=== PATIENT | male | born 1945 | race Caucasian/White ===

== ENCOUNTER 2021-06-06 09:11 | Outpatient (CLI) | payer MEDICARE ==
[2021-06-06 23:17] LABS: SARS-CoV-2 PCR by NAA Not Detected (NotDetected)
== END 2021-06-06 09:12 | disposition home or self-care (01) ==
LOC: LABBT 09:11
PROVIDERS: ATTEND Internal Medicine Cardiovascular Disease
DX: Z01.812 Encounter for preprocedural laboratory examination (principal); I48.0 Paroxysmal atrial fibrillation; Z20.822 Contact with and (suspected) exposure to COVID-19
CPT/HCPCS: U0003; U0005

== ENCOUNTER 2021-06-10 05:53 | Day surgery (SDC) | payer MEDICARE ==
[2021-06-06 11:57] VITALS: BMI 28.8
[2021-06-10] MEDS ORDERED: Lidocaine 1% w/Epinephrine 1:100K 20 ML VIAL ONE (06:36)
== END 2021-06-10 07:35 | disposition home or self-care (01) ==
LOC: CCL 05:53
PROVIDERS: ATTEND Internal Medicine Cardiovascular Disease
PROC: 0JPT32Z Removal of Monitoring Device from Trunk Subcutaneous Tissue and Fascia, Percutaneous Approach (ICD-10-PCS; principal; 2021-06-10)
DX: I48.0 Paroxysmal atrial fibrillation (principal); I25.10 Atherosclerotic heart disease of native coronary artery without angina pectoris; I10 Essential (primary) hypertension; E78.5 Hyperlipidemia, unspecified; K21.9 Gastro-esophageal reflux disease without esophagitis; Z87.891 Personal history of nicotine dependence; Z79.82 Long term (current) use of aspirin; Z79.899 Other long term (current) drug therapy; Z95.1 Presence of aortocoronary bypass graft

== ENCOUNTER 2022-04-28 05:52 | Day surgery (SDC) | payer MEDICARE ==
[2022-04-27 10:55] VITALS: BMI 28.8
[2022-04-28 07:05] LABS: #Eosinphils 0.2 thou/uL (0.0-0.7); #Lymphocytes 1.3 thou/uL (1.20-3.40); #Monocytes 1.3 thou/uL (0.11-0.59); #Neutrophils 6.6 thou/uL (1.40-6.50); %Basophils 0.5 % (0.0-1.0); %Eosinophils 2.1 % (0.0-10.0); %Monocytes 13.5 % (0.0-10.0); %Neutrophils 69.9 % (42.0-75.0); Hemoglobin 14.6 g/dL (14.0-18.0); Mean Corpuscular HGB CONC 32.4 g/dL (32.0-36.0); Mean Corpuscular Hemoglobin 29.7 pg (27.0-31.0); Mean Corpuscular Volume 91.8 fL (78.0-98.0); Mean Platelet Volume 7.6 fL (7.4-10.4); Platelet Count 268 thou/uL (130-400); RBC Distribution Width 12.7 % (11.5-14.5); White Blood Cell (WBC) Count 9.5 thou/uL (4.8-10.8)
[2022-04-28 07:18] LABS: Anion Gap 14 mmol/L (10-20); BUN (Urea Nitrogen) 18 mg/dL (8.4-25.7); Calc. Creatinine Clearance 77 mL/min (70-130); Calcium 9.8 mg/dL (7.8-10.44); Carbon Dioxide 26 mmol/L (23-31); Chloride 104 mmol/L (98-107); Estimated GFR 81; Glucose 101 mg/dL (83-110); Potassium 3.8 mmol/L (3.5-5.1); Sodium 140 mmol/L (136-145)
[2022-04-28 07:19] LABS: INR-International Normal Ratio 1.3; PTT 34.1 sec (22.9-36.1); Prothrombin Time 16.6 sec (12.0-14.7)
== END 2022-04-28 07:07 | disposition home or self-care (01) ==
LOC: SDC 05:52
PROVIDERS: ATTEND Internal Medicine Cardiovascular Disease
DX: I48.0 Paroxysmal atrial fibrillation (principal); I25.10 Atherosclerotic heart disease of native coronary artery without angina pectoris; I10 Essential (primary) hypertension; E78.5 Hyperlipidemia, unspecified; K21.9 Gastro-esophageal reflux disease without esophagitis; Z53.8 Procedure and treatment not carried out for other reasons; Z79.01 Long term (current) use of anticoagulants; Z79.82 Long term (current) use of aspirin; Z79.899 Other long term (current) drug therapy; Z95.1 Presence of aortocoronary bypass graft
CPT/HCPCS: 36415; 80048; 85025; 85610; 85730

== ENCOUNTER 2022-05-05 06:01 | Day surgery (SDC) | payer MEDICARE ==
[2022-05-04 14:55] VITALS: BMI 28.8
[2022-05-05] MEDS ORDERED: PROPOFOL 200 MG/20 ML VIAL ONE (07:32)
== END 2022-05-05 08:41 | disposition home or self-care (01) ==
LOC: SDC 06:01
PROVIDERS: ATTEND Internal Medicine Cardiovascular Disease
PROC: 5A2204Z Restoration of Cardiac Rhythm, Single (ICD-10-PCS; principal; 2022-05-05)
DX: I48.19 Other persistent atrial fibrillation (principal); I25.10 Atherosclerotic heart disease of native coronary artery without angina pectoris; I10 Essential (primary) hypertension; E78.5 Hyperlipidemia, unspecified; K21.9 Gastro-esophageal reflux disease without esophagitis; Z87.891 Personal history of nicotine dependence; Z79.01 Long term (current) use of anticoagulants; Z79.82 Long term (current) use of aspirin; Z79.899 Other long term (current) drug therapy; Z95.1 Presence of aortocoronary bypass graft
CPT/HCPCS: 92960; 93005; 93010; J2704

== ENCOUNTER 2022-09-10 11:58 | Outpatient (CLI) | payer MEDICARE | END 2022-09-10 11:59 | disposition home or self-care (01) | LOC: TBSIIMAG 11:58 | PROVIDERS: ATTEND Anesthesiology Pain Medicine | DX: M47.26 Other spondylosis with radiculopathy, lumbar region (principal); M48.061 Spinal stenosis, lumbar region without neurogenic claudication; M47.27 Other spondylosis with radiculopathy, lumbosacral region; M48.07 Spinal stenosis, lumbosacral region | CPT/HCPCS: 72148 ==

== ENCOUNTER 2023-04-16 08:14 | Day surgery (SDC) | payer MEDICARE ==
[2023-04-13 11:12] VITALS: BMI 28.8
[2023-04-13 11:34] LABS: Hematocrit 41.8 % (38.8-50.0); Hemoglobin 14.3 g/dL (13.5-17.5); Mean Corpuscular HGB CONC 34.2 g/dL (32.0-36.0); Mean Corpuscular Hemoglobin 29.4 pg (27.0-33.0); Mean Platelet Volume 9.3 fl (7.4-10.4); Platelet Count 335 10x3/uL (150-450); RBC Distribution Width 13.3 % (11.5-14.5); Red Blood Cell (RBC) Count 4.86 10x6/uL (4.32-5.72); White Blood Cell (WBC) Count 19.7 10x3/uL (3.5-10.5)
[2023-04-13 12:06] LABS: Anion Gap 15 mmol/L (10-20); BUN (Urea Nitrogen) 24 mg/dL (8.4-25.7); Calc. Creatinine Clearance 75 mL/min (70-130); Carbon Dioxide 22 mmol/L (23-31); Chloride 106 mmol/L (98-107); Estimated GFR 79; Glucose 103 mg/dL (83-110); Potassium 3.7 mmol/L (3.5-5.1); Sodium 139 mmol/L (136-145)
[2023-04-16] MEDS ORDERED: Protamine Sulfate 50 MG/5 ML VIAL ONE (09:16)
[2023-04-16] MEDS ORDERED: Heparin 10,000 UNITS/ 10 ML VIAL ONE (09:16)
[2023-04-16] MEDS ORDERED: Heparin 25,000 units/D5W 500 ML ONE (09:16)
[2023-04-16 09:33] LABS: #Eosinphils 0.1 thou/uL (0.0-0.7); #Monocytes 1.5 thou/uL (0.11-0.59); #Neutrophils 6.9 thou/uL (1.40-6.50); %Basophils 0.3 % (0.0-1.0); %Eosinophils 1.2 % (0.0-10.0); %Lymphocytes 12.1 % (21.0-51.0); %Monocytes 15.7 % (0.0-10.0); %Neutrophils 70.2 % (42.0-75.0); Hematocrit 43.3 % (42.0-52.0); Hemoglobin 14.5 g/dL (14.0-18.0); Mean Corpuscular HGB CONC 33.5 g/dL (32.0-36.0); Mean Corpuscular Hemoglobin 29.8 pg (27.0-31.0); Mean Corpuscular Volume 88.9 fl (78.0-98.0); Mean Platelet Volume 9.3 fL (7.4-10.4); Platelet Count 311 10x3/uL (130-400); RBC Distribution Width 13.6 % (11.5-14.5); Red Blood Cell (RBC) Count 4.87 mill/uL (4.70-6.10); White Blood Cell (WBC) Count 9.8 10x3/uL (4.8-10.8)
[2023-04-16] MEDS ORDERED: Iopamidol 370 76% 100 ML VIAL ONE (09:52)
[2023-04-16] MEDS ORDERED: fentaNYL 50 mcg/mL 1 mL Vial ONE ×3 (10:29→12:23)
[2023-04-16] MEDS ORDERED: Midazolam HCl 2 mg/2 ml Vial ONE (10:29)
[2023-04-16] MEDS ORDERED: Ondansetron PF 4 MG/2 ML Vial ONE (10:41)
[2023-04-16] MEDS ORDERED: ePHEDrine Sulfate 50 MG/10 ML VIAL ONE (10:41)
[2023-04-16] MEDS ORDERED: Rocuronium Bromide 10 MG/ML (10ML VIAL) ONE (10:41)
[2023-04-16] MEDS ORDERED: Dexamethasone 20 MG/5 ML VIAL ONE (10:41)
[2023-04-16] MEDS ORDERED: PROPOFOL 200 MG/20 ML VIAL ONE (10:41)
[2023-04-16] MEDS ORDERED: PHENYLEPHRINE-NS 100 MCG/ML 10 ML SYRINGE ONE (10:41)
== END 2023-04-16 16:00 | disposition home or self-care (01) ==
LOC: SDC 08:14
PROVIDERS: ATTEND Internal Medicine Cardiovascular Disease
PROC: B245ZZ4 Ultrasonography of Left Heart, Transesophageal (ICD-10-PCS; principal; 2023-04-16)
PROC: 025 Heart and Great Vessels, Destruction (ICD-10-PCS; 2023-04-16)
DX: I48.19 Other persistent atrial fibrillation (principal); I48.4 Atypical atrial flutter; I48.0 Paroxysmal atrial fibrillation; I10 Essential (primary) hypertension; K21.9 Gastro-esophageal reflux disease without esophagitis; I25.10 Atherosclerotic heart disease of native coronary artery without angina pectoris; Z95.1 Presence of aortocoronary bypass graft; Z90.89 Acquired absence of other organs; Z87.891 Personal history of nicotine dependence; Z79.01 Long term (current) use of anticoagulants; Z79.82 Long term (current) use of aspirin; Z79.899 Other long term (current) drug therapy; Z98.890 Other specified postprocedural states
CPT/HCPCS: 80048; 85025; 85027; 85347 ×2; 85610; 93005; 93312; 93655; 93656; C1732; C1759; C1769 ×2; C1894 ×3; C2630; J3010; C1760; C1887; J1100; J1644; J2250; J2405; J2704; J2720

== ENCOUNTER 2023-09-23 09:33 | Outpatient (CLI) | payer MEDICARE | END 2023-09-23 09:34 | disposition home or self-care (01) | LOC: BICMRI 09:33 | PROVIDERS: ATTEND Anesthesiology Pain Medicine | DX: M48.062 Spinal stenosis, lumbar region with neurogenic claudication (principal); M47.817 Spondylosis without myelopathy or radiculopathy, lumbosacral region; M47.816 Spondylosis without myelopathy or radiculopathy, lumbar region; M48.07 Spinal stenosis, lumbosacral region | CPT/HCPCS: 72148 ==